=== PATIENT | male | born 1970 | race Caucasian/White ===

== ENCOUNTER → 2017-09-26 | Emergency (ER) | payer OTHER ==
[~2017-09-26] VITALS: Ht 185.4 cm; Wt 102.1 kg
== END | disposition home or self-care (01) ==
LOC: ED 19:14
DX: S91.332A Puncture wound without foreign body, left foot, initial encounter (principal); Z23 Encounter for immunization; W22.8XXA Striking against or struck by other objects, initial encounter
CPT/HCPCS: 90471; 90715; 99282

== ENCOUNTER 2020-05-09 11:29 | Emergency (ER) | payer OTHER ==
[~2020-05-09] VITALS: Ht 185.4 cm; Wt 106.6 kg
[2020-05-09] MEDS ORDERED: ELIQUIS5 MG PO (14:13)
--- NOTE | 2020-05-10 11:42 | EKG ---
[facility] [address] [facility] [place], [place] [address] Signed Normal sinus rhythm Normal ECG No previous ECGs available Confirmed by NAVNEET SANDOVAL DO ([id number]) on 05/10/2020 11:41:54 AM Electronically Signed By: NAVNEET SANDOVAL DO 05/10/20 1142 PATIENT NAME: DAVIS ESTRADA Electrocardiogram DATE OF : 74 PHYSICIAN: NAVNEET SANDOVAL DO REPORT #: [id number] REPORT IS CONFIDENTIAL AND NOT TO BE RELEASED WITHOUT AUTHORIZATION
== END 2020-05-09 14:21 | disposition home or self-care (01) ==
LOC: ED 11:29
DX: I26.99 Other pulmonary embolism without acute cor pulmonale (principal); Z20.828 Contact with and (suspected) exposure to other viral communicable diseases
CPT/HCPCS: 71260; 93005; 93010; 99284-25; C9803; J7030; Q9967; U0003

== ENCOUNTER 2024-12-07 07:10 | Day surgery (SDC) | payer OTHER ==
[~2024-12-07] VITALS: Ht 185.4 cm; Wt 97.7 kg
[~2024-12-07 07:10] MED LIST: ELIQUIS5 MG PO; IBLOOD GLUCOSE TEST STRIP 1 EA TEST VI PRN; LACTATED RINGER'S 1,000 ML IV SCH; LIDOCAINE HCL 1% 5 ML SDV INJ ONE; MIDAZOLAM HCL 5 MG/5 ML VIAL IV PRN; fentaNYL citrate 100 MCG/2 ML VIAL IV PRN
--- NOTE | 2024-12-07 07:20 | NUR ---
VISITED DURING SPIRITUAL CARE ROUNDS. PT SUPPORTED BY IN ROOM. BOTH IN OVERALL GOOD SPIRITS, NO IMMEDIATE NEEDS. DEEP FAT FRY COOK PROVIDED SUPPORTIVE PRESENCE, HOSPITALITY, PRAYER, FACILITATED INTERACTION WITH THERAPY ANIMAL. PT AND EXPRESSED GRATITUDE.
[2024-12-07 07:28] VITALS: BP 122/66
[2024-12-07] MEDS ORDERED: MIDAZOLAM HCL 5 MG/5 ML VIAL ONE (08:38)
[2024-12-07] MEDS ORDERED: fentaNYL citrate 100 MCG/2 ML VIAL ONE (08:38)
--- NOTE | 2024-12-07 09:36 | NUR ---
12/07/24 0936 Deirdre Maddox PATIENT REMAINS 98% ON 3L O2 VIA NC. OXYGEN IS DISCONTINUED AT THIS TIME.
[2024-12-07 10:11] VITALS: BP 120/74
--- NOTE | 2024-12-08 11:56 | OR ---
[facility] [address] [place], [place] [address] Signed DATE OF OPERATION: 12/07/2024 SURGEON: Monty Rolon MD PREOPERATIVE DIAGNOSES: 1. Positive FIT test, otherwise asymptomatic. 2. 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 POSTOPERATIVE DIAGNOSIS: Low rectal polyp (excised). PROCEDURE: Total colonoscopy to cecum with cold snare polypectomy x1. ANESTHESIA: Intravenous sedation fentanyl 150 mcg and Versed 10 mg. INDICATION: This 54-year-old white man is a patient of Dr. Oswadl Edmond. He was found to be have a positive "FIT" test. He has never had colonoscopy in the past. He had been undergoing Cologuard testing every two years under the direction of Dr. Barrett, his former primary care provider, now retired. Quite notably, he is on Eliquis on a daily basis related to a pulmonary embolism which was considered non-provoked. He has undergone an evaluation for possible hypercoagulable state by Dr. Terrell which was said to be negative. He is admitted at this time to undergo colonoscopy. He understands the risk of bleeding, infection, perforation, and so on. FINDINGS: The prep was excellent. Complete colonoscopy was undertaken of cecum with full intubation of the cecum. There was a polyp of the low rectum which was adenomatous in appearance and was excised completely with cold snare technique as well as cold morcellation technique. There were no other findings of note. DESCRIPTION OF PROCEDURE: The patient was brought to the endoscopy suite and placed in lateral decubitus position, given intravenous sedation to the point of slurred speech and nystagmus. He has been off his Eliquis for 48 hours. Digital rectal examination was normal. An Olympus video colonoscope was passed in the rectum and manipulated throughout the colon, ultimately intubating the cecum itself with the aid of an buyer assistant provided Electronically Signed By: MONTY ROLON MD 12/08/24 1156 PATIENT NAME: DAVIS ESTRADA OPERATIVE REPORT DATE OF : 74 REPORT #: [id number] PHYSICIAN: MONTY ROLON MD PCP: OSWALD EDMOND MD REPORT IS CONFIDENTIAL AND NOT TO BE RELEASED WITHOUT AUTHORIZATION [facility] [address] [place], [place] [address] Signed abdominal wall stabilization. Full and complete intubation of cecum was accomplished and the ileocecal valve and appendiceal orifice were noted to be normal. The scope was withdrawn from that point and examination throughout showed no sign of abnormality into the low rectum where an adenomatous appearing polyp was noted. It was rather soft and certainly less than a cm in size. It was excised initially with cold snare technique. Additional morcellation technique to assure complete ablation. Bleeding was minimal. Retroflexed view was then undertaken showing no other abnormalities. Scope was removed. The patient was taken to the recovery room in good condition. CONCLUDING DIAGNOSIS: Polyps x1, low rectum. PLAN: Recommend repeat colonoscopy in 3 to 5 years under the circumstances. We will be sure to check his pathology report and modify this depending on those findings. He will return to the ongoing care of Dr. Edmond otherwise. He will be advised to restart his Eliquis in 48 hours. Monty Rolon MD JM/MODL /[id number] cc: Oswald Edmond MD Copies: OSWALD EDMOND MD ~ Electronically Signed By: MONTY ROLON MD 12/08/24 1156 PATIENT NAME: DAVIS ESTRADA OPERATIVE REPORT DATE OF : 74 REPORT #: [id number] PHYSICIAN: MONTY ROLON MD PCP: OSWALD EDMOND MD REPORT IS CONFIDENTIAL AND NOT TO BE RELEASED WITHOUT AUTHORIZATION
--- NOTE | 2024-12-10 12:05 | PATH ---
[facility] [address] [place], [place] [address] Signed SPECIMEN(S): A RECTAL POLYP SPECIMEN SOURCE: A. RECTAL POLYP CLINICAL HISTORY: Positive Cologuard test FINAL PATHOLOGIC DIAGNOSIS: Colon, rectal polyp, biopsy: - Portions of tubular adenoma (3 of 5 pieces); high-grade dysplasia and malignancy. - Portions of benign, unremarkable colonic mucosa (2 of 5 pieces). [facility] MICROSCOPIC EXAMINATION: Histologic sections of all submitted blocks are examined by light microscopy. These findings, together with the gross examination, support the pathologic diagnosis. GROSS DESCRIPTION: The specimen, labeled and designated "Estrada, rectal polyp," is received in formalin and consists of five stone soft tissue fragments, ranging from 0.2-0.4 cm. Entirely submitted in (A1). VB (under the direct supervision of a pathologist) The Gross Description was prepared using a voice recognition system. The report was reviewed for accuracy; however, sound-alike word errors, addition and/or deletions may occur. If there are any questions about this report, please contact Client Services. ADDITIONAL NOTES: Immunohistochemical and/or in situ hybridization studies if performed in this case included appropriate positive controls that reacted as expected. This test was developed and its performance characteristics determined by [facility]. It has not been cleared or approved by the U.S. Food and Drug Administration. The FDA has determined that such clearance or approval is not necessary. This test is used for clinical purposes. It should not be regarded as investigational or for research. [facility] is certified under the Clinical Laboratory Improvement Amendments of 1988 (CLIA) as qualified to perform high complexity clinical PATIENT NAME: DAVIS ESTRADA PATHOLOGY DATE OF : 74 REPORT #: [id number] PHYSICIAN: NATE SMITH PCP: OSWALD ALLEN MD REPORT IS CONFIDENTIAL AND NOT TO BE RELEASED WITHOUT AUTHORIZATION [address], [place] [address] Signed laboratory testing. PERFORMING LABORATORY: Technical component was performed by [facility], [address] [place] [id number] (CLIA# [id number]). Professional interpretation was performed by [facility], [address] [place] [id number] (CLIA#: [id number]). Diagnostician: Sunshine Khoury MD Pathologist Electronically Signed 12/10/2024 Copies: ~ PATIENT NAME: DAVIS ESTRADA PATHOLOGY DATE OF : 74 REPORT #: [id number] PHYSICIAN: NATE SMITH PCP: OSWALD ALLEN MD REPORT IS CONFIDENTIAL AND NOT TO BE RELEASED WITHOUT AUTHORIZATION
== END 2024-12-07 10:20 | disposition home or self-care (01) ==
LOC: OPS 07:10 → DS 07:10 → OPS 08:30
PROVIDERS: ATTEND Surgery
PROC: 0DBP8ZX Excision of Rectum, Via Natural or Artificial Opening Endoscopic, Diagnostic (ICD-10-PCS; principal; 2024-12-07 08:30)
DX: Z12.11 Encounter for screening for malignant neoplasm of colon (principal); D12.8 Benign neoplasm of rectum; C20 Malignant neoplasm of rectum; I10 Essential (primary) hypertension; Z86.711 Personal history of pulmonary embolism; Z86.718 Personal history of other venous thrombosis and embolism; Z79.01 Long term (current) use of anticoagulants
CPT/HCPCS: 99153; G0500; J2250; J3010; J7121